=== PATIENT | male | born 1965 | race Caucasian/White ===

== ENCOUNTER 2024-07-19 14:37 | Emergency (ER) | payer BC | END 2024-07-19 21:25 | disposition home or self-care (01) | LOC: LL.ED 14:37 | DX: S52.122A Displaced fracture of head of left radius, initial encounter for closed fracture (principal); Z91.030 Bee allergy status; W18.39XA Other fall on same level, initial encounter; Y93.89 Activity, other specified | CPT/HCPCS: 29105; 73070-RT; 73080-RT; 73200-RT; 99283-25 ==